=== PATIENT | female | born 1950 | race Two or more races ===

== ENCOUNTER 2017-03-22 08:55 | Outpatient (CLI) | payer OTHER ==
[~2017-03-22 08:55] MED LIST: BENADRYL50 MG; DICY10CA; SYNTHROID75 MCG; ULTRAM50 MG
== END 2017-03-22 08:59 | disposition home or self-care (01) ==
LOC: MAMO-SONO 08:55
DX: Z12.31 Encounter for screening mammogram for malignant neoplasm of breast (principal); Z87.898 Personal history of other specified conditions; N63.10 Unspecified lump in the right breast, unspecified quadrant; N63.20 Unspecified lump in the left breast, unspecified quadrant

== ENCOUNTER 2017-07-28 08:29 | Outpatient (CLI) | payer OTHER | END 2017-07-28 15:58 | disposition home or self-care (01) | LOC: TOM 08:29 | DX: R10.9 Unspecified abdominal pain (principal) ==

== ENCOUNTER 2017-11-23 12:12 | Outpatient (CLI) | payer OTHER | END 2017-11-23 12:13 | disposition home or self-care (01) | LOC: RAD 12:12 | DX: H35.342 Macular cyst, hole, or pseudohole, left eye (principal) ==

== ENCOUNTER 2018-03-06 07:03 | Emergency (ER) | payer OTHER ==
[~2018-03-06] VITALS: Ht 149.9 cm; Wt 59.0 kg
[2018-03-06] MEDS ORDERED: ZANAFLEX2 M1 (07:15)
== END 2018-03-06 10:45 | disposition home or self-care (01) ==
LOC: ER 07:03
DX: M54.32 Sciatica, left side (principal)

== ENCOUNTER 2018-03-20 13:28 | Outpatient (CLI) | payer OTHER ==
[~2018-03-20 13:28] MED LIST changes: +ZANAFLEX2 M1
== END 2018-03-20 13:36 | disposition home or self-care (01) ==
LOC: RAD 501 13:28
DX: M54.5 Low back pain (principal); M54.16 Radiculopathy, lumbar region

== ENCOUNTER → 2018-03-29 | Outpatient (CLI) | payer OTHER | END | disposition home or self-care (01) | LOC: NUCLEAR 12:46 | DX: M81.0 Age-related osteoporosis without current pathological fracture (principal) ==

== ENCOUNTER 2018-04-02 13:49 | Outpatient (CLI) | payer OTHER | END 2018-04-02 14:00 | disposition home or self-care (01) | LOC: RAD 501 13:49 | DX: M25.562 Pain in left knee (principal) ==

== ENCOUNTER 2018-04-05 09:42 | Outpatient (CLI) | payer OTHER | END 2018-04-05 09:56 | disposition home or self-care (01) | LOC: MRI 09:42 | DX: M54.5 Low back pain (principal); M54.16 Radiculopathy, lumbar region | CPT/HCPCS: 72148 ==

== ENCOUNTER 2018-05-08 11:04 | Emergency (ER) | payer OTHER ==
[~2018-05-08] VITALS: Ht 149.9 cm; Wt 59.0 kg
[2018-05-08] MEDS ORDERED: NEURONTIN300 MG PO (11:36)
[2018-05-08] MEDS ORDERED: LEVAQUIN500 MG PO (11:37)
== END 2018-05-08 16:32 | disposition home or self-care (01) ==
LOC: ER 11:04
DX: K29.60 Other gastritis without bleeding (principal)

== ENCOUNTER → 2018-07-09 | Outpatient (CLI) | payer OTHER ==
[~2018-07-09] MED LIST changes: +LEVAQUIN500 MG PO; +NEURONTIN300 MG PO
== END | disposition home or self-care (01) ==
LOC: NUCLEAR 09:30
DX: I82.409 Acute embolism and thrombosis of unspecified deep veins of unspecified lower extremity (principal)

== ENCOUNTER 2018-08-27 07:56 | Outpatient (CLI) | payer OTHER | END 2018-08-27 08:02 | disposition home or self-care (01) | LOC: LAB 07:56 | DX: N39.0 Urinary tract infection, site not specified (principal) ==

== ENCOUNTER 2018-08-28 07:08 | Outpatient (CLI) | payer OTHER | END 2018-08-28 07:17 | disposition home or self-care (01) | LOC: TOM 07:08 | DX: N39.0 Urinary tract infection, site not specified (principal) | CPT/HCPCS: 74177; Q9965 ==

== ENCOUNTER 2018-11-28 11:56 | Outpatient (CLI) | payer OTHER | END 2018-11-28 12:17 | disposition home or self-care (01) | LOC: MAMO-SONO 11:56 | DX: Z12.31 Encounter for screening mammogram for malignant neoplasm of breast (principal); N64.4 Mastodynia; Z87.898 Personal history of other specified conditions; Z09 Encounter for follow-up examination after completed treatment for conditions other than malignant neoplasm ==

== ENCOUNTER 2019-03-20 06:17 | Outpatient (CLI) | payer OTHER | END 2019-03-20 06:23 | disposition home or self-care (01) | LOC: LAB 06:17 | DX: E78.2 Mixed hyperlipidemia (principal); E04.8 Other specified nontoxic goiter; I11.0 Hypertensive heart disease with heart failure; D53.8 Other specified nutritional anemias; N39.0 Urinary tract infection, site not specified; Z12.11 Encounter for screening for malignant neoplasm of colon; I20.0 Unstable angina; E55.9 Vitamin D deficiency, unspecified ==

== ENCOUNTER 2019-03-21 06:51 | Outpatient (CLI) | payer OTHER | END 2019-03-21 06:57 | disposition home or self-care (01) | LOC: LAB 06:51 | DX: E78.2 Mixed hyperlipidemia (principal); E04.8 Other specified nontoxic goiter; I11.0 Hypertensive heart disease with heart failure; N39.0 Urinary tract infection, site not specified; Z12.11 Encounter for screening for malignant neoplasm of colon; E55.9 Vitamin D deficiency, unspecified; I20.0 Unstable angina; D53.8 Other specified nutritional anemias ==

== ENCOUNTER 2019-04-15 11:22 | Outpatient (CLI) | payer OTHER | END 2019-04-15 11:27 | disposition home or self-care (01) | LOC: LAB 11:22 | DX: J11.1 Influenza due to unidentified influenza virus with other respiratory manifestations (principal); D64.89 Other specified anemias; J44.9 Chronic obstructive pulmonary disease, unspecified ==

== ENCOUNTER 2019-07-22 06:15 | Outpatient (CLI) | payer OTHER | END 2019-07-22 06:30 | disposition home or self-care (01) | LOC: LAB 06:15 | DX: I11.0 Hypertensive heart disease with heart failure (principal); D53.8 Other specified nutritional anemias; N39.0 Urinary tract infection, site not specified; E78.2 Mixed hyperlipidemia; E04.8 Other specified nontoxic goiter; E22.2 Syndrome of inappropriate secretion of antidiuretic hormone; N18.2 Chronic kidney disease, stage 2 (mild) ==

== ENCOUNTER 2019-09-20 06:31 | Outpatient (CLI) | payer OTHER | END 2019-09-20 06:35 | disposition home or self-care (01) | LOC: LAB 06:31 | PROVIDERS: ATTEND Urology | DX: N30.00 Acute cystitis without hematuria (principal) ==

== ENCOUNTER → 2019-12-23 06:29 | Outpatient (CLI) | payer OTHER | END | disposition home or self-care (01) | LOC: LAB 06:29 | PROVIDERS: ATTEND Internal Medicine Endocrinology, Diabetes & Metabolism | DX: D53.8 Other specified nutritional anemias (principal); I11.0 Hypertensive heart disease with heart failure; N39.0 Urinary tract infection, site not specified; E04.8 Other specified nontoxic goiter; E11.9 Type 2 diabetes mellitus without complications; E55.9 Vitamin D deficiency, unspecified; E58 Dietary calcium deficiency ==

== ENCOUNTER → 2020-01-08 | Outpatient (CLI) | payer OTHER | END | disposition home or self-care (01) | LOC: MAMO-SONO 09:18 | PROVIDERS: ATTEND Obstetrics & Gynecology | DX: Z12.31 Encounter for screening mammogram for malignant neoplasm of breast (principal); N60.11 Diffuse cystic mastopathy of right breast ==

== ENCOUNTER 2020-03-02 15:43 | Outpatient (CLI) | payer OTHER | END 2020-03-02 16:00 | disposition home or self-care (01) | LOC: PPH VACUNA 15:43 | PROVIDERS: ATTEND Emergency Medicine Pediatric Emergency Medicine | DX: Z23 Encounter for immunization (principal) ==

== ENCOUNTER 2020-04-24 06:15 | Outpatient (CLI) | payer OTHER | END 2020-04-24 06:16 | disposition home or self-care (01) | LOC: LAB 06:15 | PROVIDERS: ATTEND Internal Medicine Endocrinology, Diabetes & Metabolism | DX: I11.0 Hypertensive heart disease with heart failure (principal); D53.8 Other specified nutritional anemias; N39.0 Urinary tract infection, site not specified; E78.2 Mixed hyperlipidemia; N36.2 Urethral caruncle; E11.69 Type 2 diabetes mellitus with other specified complication ==

== ENCOUNTER 2020-05-22 06:22 | Outpatient (CLI) | payer OTHER | END 2020-05-22 06:28 | disposition home or self-care (01) | LOC: LAB 06:22 | PROVIDERS: ATTEND Internal Medicine Cardiovascular Disease | DX: E03.8 Other specified hypothyroidism (principal); I10 Essential (primary) hypertension; E11.9 Type 2 diabetes mellitus without complications; E78.2 Mixed hyperlipidemia; R10.84 Generalized abdominal pain; A05.8 Other specified bacterial foodborne intoxications ==

== ENCOUNTER → 2020-05-25 06:59 | Outpatient (CLI) | payer OTHER | END | disposition home or self-care (01) | LOC: LAB 06:59 | PROVIDERS: ATTEND Internal Medicine Cardiovascular Disease | DX: I10 Essential (primary) hypertension (principal); R10.84 Generalized abdominal pain; A05.8 Other specified bacterial foodborne intoxications; I13.2 Hypertensive heart and chronic kidney disease with heart failure and with stage 5 chronic kidney disease, or end stage renal disease; E78.2 Mixed hyperlipidemia; E11.9 Type 2 diabetes mellitus without complications; E03.8 Other specified hypothyroidism ==

== ENCOUNTER → 2020-05-25 | Outpatient (CLI) | payer OTHER | END | disposition home or self-care (01) | LOC: TOM 06:55 | PROVIDERS: ATTEND Internal Medicine Cardiovascular Disease | DX: R10.84 Generalized abdominal pain (principal) ==

== ENCOUNTER 2020-12-07 08:00 | Outpatient (CLI) | payer OTHER | END 2020-12-07 08:30 | disposition home or self-care (01) | LOC: PPH VACUNA 08:00 | PROVIDERS: ATTEND Emergency Medicine Pediatric Emergency Medicine | DX: Z23 Encounter for immunization (principal) ==

== ENCOUNTER 2020-12-30 07:41 | Outpatient (CLI) | payer OTHER | END 2020-12-30 07:45 | disposition home or self-care (01) | LOC: NUCLEAR 07:41 | PROVIDERS: ATTEND Internal Medicine Cardiovascular Disease | DX: I87.2 Venous insufficiency (chronic) (peripheral) (principal) ==

== ENCOUNTER 2021-03-19 06:18 | Outpatient (CLI) | payer OTHER | END 2021-03-19 06:22 | disposition home or self-care (01) | LOC: LAB 06:18 | DX: I11.0 Hypertensive heart disease with heart failure (principal); D53.8 Other specified nutritional anemias; N39.0 Urinary tract infection, site not specified; E04.8 Other specified nontoxic goiter; E78.2 Mixed hyperlipidemia; E11.9 Type 2 diabetes mellitus without complications; E55.9 Vitamin D deficiency, unspecified ==

== ENCOUNTER 2021-07-23 06:15 | Outpatient (CLI) | payer OTHER | END 2021-07-23 06:16 | disposition home or self-care (01) | LOC: LAB 06:15 | PROVIDERS: ATTEND Internal Medicine Endocrinology, Diabetes & Metabolism | DX: D53.9 Nutritional anemia, unspecified (principal); I10 Essential (primary) hypertension; N39.0 Urinary tract infection, site not specified; E11.9 Type 2 diabetes mellitus without complications; E78.2 Mixed hyperlipidemia; E04.9 Nontoxic goiter, unspecified; E61.3 Manganese deficiency; E61.7 Deficiency of multiple nutrient elements ==

== ENCOUNTER 2021-08-17 09:38 | Outpatient (CLI) | payer OTHER | END 2021-08-17 10:40 | disposition home or self-care (01) | LOC: MAMO-SONO 09:38 | PROVIDERS: ATTEND Internal Medicine Endocrinology, Diabetes & Metabolism | DX: N64.4 Mastodynia (principal) ==

== ENCOUNTER → 2021-08-17 | Outpatient (CLI) | payer OTHER | END | disposition home or self-care (01) | LOC: NUCLEAR 10:50 | PROVIDERS: ATTEND Internal Medicine Endocrinology, Diabetes & Metabolism | DX: M81.0 Age-related osteoporosis without current pathological fracture (principal); E04.9 Nontoxic goiter, unspecified ==

== ENCOUNTER → 2021-08-24 06:23 | Outpatient (CLI) | payer OTHER | END | disposition home or self-care (01) | LOC: LAB 06:23 | PROVIDERS: ATTEND Internal Medicine Gastroenterology | DX: E03.9 Hypothyroidism, unspecified (principal); E78.5 Hyperlipidemia, unspecified; R10.9 Unspecified abdominal pain; R19.5 Other fecal abnormalities ==

== ENCOUNTER → 2021-08-24 | Outpatient (CLI) | payer OTHER | END | disposition home or self-care (01) | LOC: SONOGRAMA 06:38 | PROVIDERS: ATTEND Internal Medicine Gastroenterology | DX: R10.9 Unspecified abdominal pain (principal) ==